=== PATIENT | male | born 1965 | race Caucasian/White ===

== ENCOUNTER → 2017-03-20 | Outpatient (CLI) | payer BC ==
[~2017-03-20] MED LIST: OMEP40CA2 PO; PERC5TAB12 PO; TRAZ50TA11 PO; VIAG100T PO; [UNRECOGNIZED DRUG - OTHER]; [UNRECOGNIZED DRUG - OTHER] PO
[2017-03-20 12:25] LABS: ANION GAP 8 MEQ/L (8-16); BLOOD UREA NITROGEN 16 MG/DL (7-18); CALCIUM LEVEL 9.2 MG/DL (8.5-10.1); CARBON DIOXIDE LEVEL 27 MEQ/L (21-32); CHLORIDE LEVEL 105 MEQ/L (98-107); CREATININE FOR GFR 0.97 MG/DL (0.70-1.30); GLOMERULAR FILTRATION RATE > 60.0 (>56); GLUCOSE, FASTING 119 MG/DL (70-105); POTASSIUM SERUM 4.2 MEQ/L (3.5-5.1); SODIUM LEVEL 140 MEQ/L (136-145)
== END ==
LOC: M LAB 11:32
PROVIDERS: ATTEND Physician Assistant
DX: I10 Essential (primary) hypertension (principal)

== ENCOUNTER → 2017-07-24 | Outpatient (REF) | payer BC ==
[~2017-07-24] MED LIST changes: +CHLO125TA PO; +LISI40TAB PO
== END ==
LOC: M LAB REF 16:54
PROVIDERS: ATTEND Physician Assistant
DX: R30.0 Dysuria (principal)

== ENCOUNTER → 2017-07-24 | Outpatient (CLI) | payer BC ==
[2017-07-24 16:57] LABS: MEAN CORPUSCULAR HEMOGLOBIN 24.5 pg (27.0-33.0); MEAN CORPUSCULAR HGB CONC 32.2 g/dl (32.0-36.5); MEAN CORPUSCULAR VOLUME 76.1 fl (80.0-96.0); PLATELET COUNT, AUTOMATED 456 10^3/uL (150-450); RED CELL DISTRIBUTION WIDTH 15.4 % (11.5-14.5); WHITE BLOOD COUNT 8.5 10^3/uL (4.0-10.0)
[2017-07-24 17:09] LABS: ALBUMIN 4.1 GM/DL (3.2-5.2); ALBUMIN/GLOBULIN RATIO 0.95 (1.00-1.93); ALKALINE PHOSPHATASE 149 U/L (45-117); ALT/SGPT 27 U/L (12-78); ANION GAP 9 MEQ/L (8-16); AST/SGOT 24 U/L (7-37); BILIRUBIN,TOTAL 0.6 MG/DL (0.2-1.0); BLOOD UREA NITROGEN 14 MG/DL (7-18); CALCIUM LEVEL 9.4 MG/DL (8.5-10.1); CARBON DIOXIDE LEVEL 29 MEQ/L (21-32); CHLORIDE LEVEL 98 MEQ/L (98-107); CHOLESTEROL LEVEL 210 MG/DL (< 200); FREE T4 1.24 NG/DL (0.76-1.46); GLOMERULAR FILTRATION RATE > 60.0 (>56); GLUCOSE, FASTING 110 MG/DL (70-105); IMMUNOGLOBULIN G 1290 MG/DL (681-1648); PHOSPHORUS LEVEL 3.9 MG/DL (2.5-4.9); POTASSIUM SERUM 4.2 MEQ/L (3.5-5.1); SODIUM LEVEL 136 MEQ/L (136-145); TOTAL PROTEIN 8.4 GM/DL (6.4-8.2); TRIGLYCERIDES LEVEL 100 MG/DL (<150)
[2017-07-24 19:01] LABS: ERYTHROCYTE SEDIMENTATION RATE 10 mm/hr (0-20)
[2017-07-25 07:25] LABS: CONTROL LINE MONO INT CTR LINE PRESENT
[2017-07-27 00:06] LABS: Lyme Disease IgG Ab 18 kDa Ban Absent (.); Lyme Disease IgG Ab 23 kDa Ban Absent (.); Lyme Disease IgG Ab 28 kDa Ban Absent (.); Lyme Disease IgG Ab 30 kDa Ban Absent (.); Lyme Disease IgG Ab 39 kDa Ban Absent (.); Lyme Disease IgG Ab 41 kDa Ban Present (.); Lyme Disease IgG Ab 45 kDa Ban Absent (.); Lyme Disease IgG Ab 58 kDa Ban Absent (.); Lyme Disease IgG Ab 66 kDa Ban Present (.); Lyme Disease IgG Ab 93 kDa Ban Absent (.); Lyme Disease IgG West Blot Int Negative (.); Lyme Disease IgG/IgM Antibodie <0.91 ISR (0.00-0.90); Lyme Disease IgM Ab 23 kDa Ban Absent (.); Lyme Disease IgM Ab 39 kDa Ban Absent (.); Lyme Disease IgM Ab 41 kDa Ban Absent (.); Lyme Disease IgM Ab Quantitati 1.13 index (0.00-0.79); Lyme Disease IgM West Blot Int Negative (.); PSA TOTAL 1.5 ng/mL (0.0-4.0)
== END ==
LOC: M SMT 13:44
PROVIDERS: ATTEND Physician Assistant
DX: R53.83 Other fatigue (principal); M25.561 Pain in right knee; R30.0 Dysuria

== ENCOUNTER 2017-08-02 10:02 | Day surgery (SDC) | payer BC ==
[2017-08-02] MEDS: NS 1,000 ML IV (10:24)
[2017-08-02] MEDS ORDERED: LIDOCAINE 2% INJ 100 MG/5 ML SDV (FOR ANES.) As Ordered (11:19)
[2017-08-02] MEDS ORDERED: PROPOFOL 200 MG/20 ML VIAL As Ordered ×3 (11:19→11:34)
== END 2017-08-02 12:19 | disposition home or self-care (01) ==
LOC: M OPP 10:02
DX: Z08 Encounter for follow-up examination after completed treatment for malignant neoplasm (principal); Z85.038 Personal history of other malignant neoplasm of large intestine; K62.1 Rectal polyp; D12.3 Benign neoplasm of transverse colon; D12.2 Benign neoplasm of ascending colon; K57.30 Diverticulosis of large intestine without perforation or abscess without bleeding; K29.70 Gastritis, unspecified, without bleeding; K44.9 Diaphragmatic hernia without obstruction or gangrene; I10 Essential (primary) hypertension; M19.90 Unspecified osteoarthritis, unspecified site; K21.9 Gastro-esophageal reflux disease without esophagitis; Z99.89 Dependence on other enabling machines and devices; Z79.899 Other long term (current) drug therapy; Z87.891 Personal history of nicotine dependence
CPT/HCPCS: 45385

== ENCOUNTER → 2017-09-13 | Outpatient (CLI) | payer BC ==
[2017-09-13 13:26] LABS: BASO % 0.5 % (0.0-1.0); EOS # 0.2 10^3/uL (0.0-0.50); EOS % 2.6 % (0.0-3.0); HEMATOCRIT 39.6 % (42.0-52.0); HEMOGLOBIN 12.8 g/dl (14.0-18.0); IMMATURE GRANULOCYTE % 0.4 % (0-3.0); LYMPH # 1.4 10^3/uL (1.5-4.5); LYMPH % 17.6 % (24.0-44.0); MEAN CORPUSCULAR HEMOGLOBIN 25.1 pg (27.0-33.0); MEAN CORPUSCULAR HGB CONC 32.3 g/dl (32.0-36.5); MEAN CORPUSCULAR VOLUME 77.6 fl (80.0-96.0); MONO # 0.8 10^3/uL (0.0-0.8); NEUTROPHILS # 5.3 10^3/uL (1.8-7.7); NEUTROPHILS % 68.9 % (36.0-66.0); PLATELET COUNT, AUTOMATED 420 10^3/uL (150-450); RED CELL DISTRIBUTION WIDTH 17.1 % (11.5-14.5); WHITE BLOOD COUNT 7.7 10^3/uL (4.0-10.0)
[2017-09-13 13:36] LABS: CONTROL LINE MONO INT CTR LINE PRESENT; MONO SCRN NEGATIVE (NEGATIVE)
[2017-09-13 13:48] LABS: ALBUMIN 3.5 GM/DL (3.2-5.2); ALBUMIN/GLOBULIN RATIO 0.85 (1.00-1.93); ALKALINE PHOSPHATASE 172 U/L (45-117); ALT/SGPT 50 U/L (12-78); ANION GAP 8 MEQ/L (8-16); AST/SGOT 38 U/L (7-37); BILIRUBIN,TOTAL 0.5 MG/DL (0.2-1.0); BLOOD UREA NITROGEN 13 MG/DL (7-18); CALCIUM LEVEL 9.4 MG/DL (8.5-10.1); CARBON DIOXIDE LEVEL 29 MEQ/L (21-32); CHLORIDE LEVEL 100 MEQ/L (98-107); CREATININE FOR GFR 0.79 MG/DL (0.70-1.30); GLOMERULAR FILTRATION RATE > 60.0 (>56); GLUCOSE, FASTING 103 MG/DL (70-100); POTASSIUM SERUM 3.9 MEQ/L (3.5-5.1); SODIUM LEVEL 137 MEQ/L (136-145); TOTAL PROTEIN 7.6 GM/DL (6.4-8.2)
[2017-09-15 00:06] LABS: Lyme Disease IgG Ab 18 kDa Ban Absent (.); Lyme Disease IgG Ab 23 kDa Ban Absent (.); Lyme Disease IgG Ab 28 kDa Ban Absent (.); Lyme Disease IgG Ab 30 kDa Ban Absent (.); Lyme Disease IgG Ab 39 kDa Ban Absent (.); Lyme Disease IgG Ab 41 kDa Ban Present (.); Lyme Disease IgG Ab 45 kDa Ban Absent (.); Lyme Disease IgG Ab 58 kDa Ban Absent (.); Lyme Disease IgG Ab 66 kDa Ban Absent (.); Lyme Disease IgG Ab 93 kDa Ban Absent (.); Lyme Disease IgG West Blot Int Negative (.); Lyme Disease IgG/IgM Antibodie <0.91 ISR (0.00-0.90); Lyme Disease IgM Ab 23 kDa Ban Absent (.); Lyme Disease IgM Ab 39 kDa Ban Absent (.); Lyme Disease IgM Ab 41 kDa Ban Absent (.); Lyme Disease IgM Ab Quantitati 0.81 index (0.00-0.79); Lyme Disease IgM West Blot Int Negative (.)
== END ==
LOC: M SMT 10:59
DX: R53.83 Other fatigue (principal)
CPT/HCPCS: 80053

== ENCOUNTER 2017-09-25 09:37 | Emergency (ER) | payer BC ==
[2017-09-25 11:30] LABS: BASO % 0.4 % (0.0-1.0); EOS # 0.1 10^3/uL (0.0-0.50); EOS % 1.4 % (0.0-3.0); HEMATOCRIT 33.4 % (42.0-52.0); IMMATURE GRANULOCYTE % 0.4 % (0-3.0); LYMPH # 1.2 10^3/uL (1.5-4.5); LYMPH % 15.9 % (24.0-44.0); MEAN CORPUSCULAR HEMOGLOBIN 25.4 pg (27.0-33.0); MEAN CORPUSCULAR HGB CONC 32.9 g/dl (32.0-36.5); MEAN CORPUSCULAR VOLUME 77.1 fl (80.0-96.0); MONO # 0.6 10^3/uL (0.0-0.8); MONO % 7.6 % (0.0-5.0); NEUTROPHILS # 5.7 10^3/uL (1.8-7.7); NEUTROPHILS % 74.3 % (36.0-66.0); PLATELET COUNT, AUTOMATED 328 10^3/uL (150-450); RED BLOOD COUNT 4.33 10^6/uL (4.30-6.10); RED CELL DISTRIBUTION WIDTH 16.3 % (11.5-14.5); WHITE BLOOD COUNT 7.7 10^3/uL (4.0-10.0)
[2017-09-25] MEDS: ONDANSETRON 4MG/2ML VIAL (J2405) IV (11:33)
[2017-09-25] MEDS: NS 1,000 ML IV (11:33)
[2017-09-25] MEDS: MORPHINE 2 MG/ML 1ML SYRINGE (J2270) IV (11:34)
[2017-09-25 11:48] LABS: ALBUMIN 3.1 GM/DL (3.2-5.2); ALBUMIN/GLOBULIN RATIO 0.74 (1.00-1.93); ALKALINE PHOSPHATASE 159 U/L (45-117); ALT/SGPT 39 U/L (12-78); AMYLASE 81 U/L (25-115); ANION GAP 9 MEQ/L (8-16); AST/SGOT 36 U/L (7-37); BILIRUBIN,DIRECT 0.3 MG/DL (0.0-0.2); BILIRUBIN,TOTAL 0.8 MG/DL (0.2-1.0); BLOOD UREA NITROGEN 11 MG/DL (7-18); CALCIUM LEVEL 9.1 MG/DL (8.5-10.1); CARBON DIOXIDE LEVEL 28 MEQ/L (21-32); CHLORIDE LEVEL 101 MEQ/L (98-107); CREATININE FOR GFR 0.67 MG/DL (0.70-1.30); GLOMERULAR FILTRATION RATE > 60.0 (>56); GLUCOSE, FASTING 96 MG/DL (70-100); LIPASE 854 U/L (73-393); POTASSIUM SERUM 3.4 MEQ/L (3.5-5.1); SODIUM LEVEL 138 MEQ/L (136-145); TOTAL PROTEIN 7.3 GM/DL (6.4-8.2)
[2017-09-25 11:49] LABS: LACTIC ACID SEPSIS PROTOCOL 1.5 MMOL/L (0.4-2.0)
[2017-09-25] MEDS: GASTROGRAFIN SOLUTION 30ML PO ×2 (12:00→12:02)
[2017-09-25] MEDS ORDERED: ISOVUE-370 76% 100ML VIAL (Q9967) As Ordered (12:54)
[2017-09-25] MEDS: MORPHINE 4 MG/ML 1ML VIAL (J2270) IV (13:21)
== END 2017-09-25 14:14 | disposition home or self-care (01) ==
LOC: M ED 09:37
DX: R16.0 Hepatomegaly, not elsewhere classified (principal); R18.8 Other ascites; J90 Pleural effusion, not elsewhere classified; R11.2 Nausea with vomiting, unspecified; I10 Essential (primary) hypertension; G47.33 Obstructive sleep apnea (adult) (pediatric); K21.9 Gastro-esophageal reflux disease without esophagitis; M54.5 Low back pain; A69.20 Lyme disease, unspecified; Z79.899 Other long term (current) drug therapy
CPT/HCPCS: J2270

== ENCOUNTER 2017-09-28 13:24 | Emergency (ER) | payer BC ==
[2017-09-28] MEDS: ONDANSETRON 4MG/2ML VIAL (J2405) IV ×2 (14:19)
[2017-09-28] MEDS: MORPHINE 4 MG/ML 1ML VIAL (J2270) IV ×2 (14:19)
[2017-09-28 14:23] LABS: BASO % 0.4 % (0.0-1.0); EOS # 0.1 10^3/uL (0.0-0.50); EOS % 1.6 % (0.0-3.0); HEMATOCRIT 32.1 % (42.0-52.0); HEMOGLOBIN 10.5 g/dl (14.0-18.0); IMMATURE GRANULOCYTE % 0.3 % (0-3.0); LYMPH # 1.1 10^3/uL (1.5-4.5); LYMPH % 16.8 % (24.0-44.0); MEAN CORPUSCULAR HEMOGLOBIN 25.7 pg (27.0-33.0); MEAN CORPUSCULAR HGB CONC 32.7 g/dl (32.0-36.5); MEAN CORPUSCULAR VOLUME 78.5 fl (80.0-96.0); MONO # 0.5 10^3/uL (0.0-0.8); MONO % 7.1 % (0.0-5.0); NEUTROPHILS % 73.8 % (36.0-66.0); PLATELET COUNT, AUTOMATED 305 10^3/uL (150-450); RED BLOOD COUNT 4.09 10^6/uL (4.30-6.10); RED CELL DISTRIBUTION WIDTH 16.4 % (11.5-14.5); WHITE BLOOD COUNT 6.8 10^3/uL (4.0-10.0)
[2017-09-28 14:28] LABS: INR 1.18; PROTHROMBIN TIME 15.2 SECONDS (12.4-14.5)
[2017-09-28 14:29] LABS: AMMONIA < 10 uMOL/L (<32)
[2017-09-28 14:52] LABS: LACTIC ACID SEPSIS PROTOCOL 1.5 MMOL/L (0.4-2.0)
[2017-09-28 15:27] LABS: ALBUMIN 3.1 GM/DL (3.2-5.2); ALBUMIN/GLOBULIN RATIO 0.82 (1.00-1.93); ALKALINE PHOSPHATASE 172 U/L (45-117); ALT/SGPT 39 U/L (12-78); ANION GAP 8 MEQ/L (8-16); AST/SGOT 38 U/L (7-37); BILIRUBIN,DIRECT 0.3 MG/DL (0.0-0.2); BILIRUBIN,TOTAL 0.7 MG/DL (0.2-1.0); BLOOD UREA NITROGEN 10 MG/DL (7-18); CALCIUM LEVEL 8.5 MG/DL (8.5-10.1); CARBON DIOXIDE LEVEL 29 MEQ/L (21-32); CHLORIDE LEVEL 98 MEQ/L (98-107); GLOMERULAR FILTRATION RATE > 60.0 (>56); GLUCOSE, FASTING 105 MG/DL (70-100); LIPASE 456 U/L (73-393); POTASSIUM SERUM 3.7 MEQ/L (3.5-5.1); SODIUM LEVEL 135 MEQ/L (136-145); TOTAL PROTEIN 6.9 GM/DL (6.4-8.2)
[2017-09-28] MEDS: fentaNYL 100 MCG/2 ML INJECTION (J3010) IV ×2 (15:44)
[2017-09-28] MEDS ORDERED: LIDOCAINE 1% MDV 20ML VIAL As Ordered ×2 (15:53)
[2017-09-28 16:04] LABS: CA 125 74.7 U/ML (<30.2)
[2017-09-28 16:47] LABS: CARCINOEMBRYONIC ANTIGEN 4328.7 NG/ML (<2.5)
[2017-09-28 17:46] LABS: BF MONONUCLEAR CELL % 85.8 % (0-0); BF POLYMORPHONUCLEAR CELL % 14.2 % (0-0); RBC BODY FLUID 18 10^3/uL (<2); WBC BODY FLUID 705 /uL (0-10)
[2017-09-28 17:53] LABS: SOURCE, BODY FLUID PERITONEAL
[2017-09-28 17:55] LABS: APPEARANCE, BODY FLUID CLOUDY (CLEAR); PERITONEAL FL COLOR YELLOW (COLORLESS)
[2017-09-28 17:56] LABS: BF DIFF IF INDICATED? YES (NO)
[2017-09-28 18:34] LABS: CA19-9 TUMOR MARKER,CARBOHYDRA 29936.8 U/ML (<35.0)
== END 2017-09-28 18:53 | disposition home or self-care (01) ==
LOC: M ED 13:24
DX: R18.8 Other ascites (principal); R10.9 Unspecified abdominal pain; R16.0 Hepatomegaly, not elsewhere classified; C76.2 Malignant neoplasm of abdomen; A69.20 Lyme disease, unspecified; Z85.038 Personal history of other malignant neoplasm of large intestine; Z90.49 Acquired absence of other specified parts of digestive tract; Z79.899 Other long term (current) drug therapy
CPT/HCPCS: 49083

== ENCOUNTER 2018-02-22 16:25 | Emergency (ER) | payer BC | END 2018-02-22 18:35 | disposition home or self-care (01) | LOC: M ED 16:25 | DX: M77.01 Medial epicondylitis, right elbow (principal); I10 Essential (primary) hypertension; G47.33 Obstructive sleep apnea (adult) (pediatric); M54.5 Low back pain; Z85.038 Personal history of other malignant neoplasm of large intestine; Z86.19 Personal history of other infectious and parasitic diseases; Z90.49 Acquired absence of other specified parts of digestive tract; Z79.899 Other long term (current) drug therapy; Z79.891 Long term (current) use of opiate analgesic | CPT/HCPCS: 73080 ==

== ENCOUNTER 2018-07-11 13:45 | Emergency (ER) | payer BC | END 2018-07-11 14:20 | disposition home or self-care (01) | LOC: M ED 13:45 | DX: Z48.89 Encounter for other specified surgical aftercare (principal); T81.31XA Disruption of external operation (surgical) wound, not elsewhere classified, initial encounter; Y92.9 Unspecified place or not applicable; Y93.9 Activity, unspecified; C18.9 Malignant neoplasm of colon, unspecified; Z86.19 Personal history of other infectious and parasitic diseases; Z79.899 Other long term (current) drug therapy | CPT/HCPCS: 99282 ==

== ENCOUNTER 2018-07-20 15:55 | Emergency (ER) | payer BC ==
[~2018-07-20] VITALS: Ht 185.4 cm; Wt 90.9 kg
[2018-07-20 15:55] VITALS: BP 121/82
[~2018-07-20 15:55] MED LIST changes: +ALFU10TA2; +AMLO5TAB4 PO; +DILA4TAB13 PO; +DOXY-350 PO; +NORCOTAB PO; +PERC10TA26 PO; +PROC10TA4 PO; +TRAZ-160 PO; -TRAZ50TA11 PO; +ZOFR4TAB14 PO
[2018-07-20] MEDS ORDERED: GASTROGRAFIN SOLUTION 30ML PO SCH (18:30)
[2018-07-20 18:46] LABS: BASO # 0.1 10^3/uL (0.0-0.2); BASO % 0.7 % (0.0-1.0); EOS # 0.2 10^3/uL (0.0-0.50); EOS % 2.4 % (0.0-3.0); HEMATOCRIT 42.1 % (42.0-52.0); HEMOGLOBIN 14.3 g/dl (13.5-17.5); LYMPH # 1.6 10^3/uL (1.5-4.5); LYMPH % 17.2 % (24.0-44.0); MEAN CORPUSCULAR HEMOGLOBIN 28.8 pg (27.0-33.0); MEAN CORPUSCULAR VOLUME 84.9 fl (80.0-96.0); MONO # 0.5 10^3/uL (0.0-0.8); NEUTROPHILS % 74.6 % (36.0-66.0); PLATELET COUNT, AUTOMATED 306 10^3/uL (150-450); RED BLOOD COUNT 4.96 10^6/uL (4.30-6.10); WHITE BLOOD COUNT 9.5 10^3/uL (4.0-10.0)
[2018-07-20 19:08] LABS: ALBUMIN 3.9 GM/DL (3.2-5.2); ALT/SGPT 87 U/L (12-78); AMYLASE 33 U/L (25-115); BILIRUBIN,TOTAL 1.1 MG/DL (0.2-1.0); BLOOD UREA NITROGEN 15 MG/DL (7-18); CALCIUM LEVEL 9.7 MG/DL (8.5-10.1); CARBON DIOXIDE LEVEL 30 MEQ/L (21-32); CHLORIDE LEVEL 97 MEQ/L (98-107); CREATININE FOR GFR 0.98 MG/DL (0.70-1.30); GLOMERULAR FILTRATION RATE > 60.0 (>56); GLUCOSE, FASTING 106 MG/DL (70-100); LIPASE 115 U/L (73-393); POTASSIUM SERUM 3.3 MEQ/L (3.5-5.1); SODIUM LEVEL 137 MEQ/L (136-145); TOTAL PROTEIN 8.5 GM/DL (6.4-8.2)
[2018-07-23] MEDS ORDERED: DOXY100C37 PO (10:54)
== END 2018-07-20 18:50 | disposition left against medical advice (07) ==
LOC: EEVIPCON 15:55 → M ED 15:55
DX: T81.31XA Disruption of external operation (surgical) wound, not elsewhere classified, initial encounter (principal); Y92.9 Unspecified place or not applicable; Y93.9 Activity, unspecified; Z90.49 Acquired absence of other specified parts of digestive tract; I10 Essential (primary) hypertension; C18.9 Malignant neoplasm of colon, unspecified; C22.9 Malignant neoplasm of liver, not specified as primary or secondary; Z79.899 Other long term (current) drug therapy

== ENCOUNTER → 2018-11-22 | Outpatient (CLI) | payer BC ==
[~2018-11-22] MED LIST changes: -AMLO5TAB4 PO; +AMLO5TAB6 PO; +DOXY100C37 PO; +HYDR-3715 PO; +LISI40TA PO; -LISI40TAB PO; -NORCOTAB PO
[2018-11-22 19:16] LABS: ALBUMIN 4.2 GM/DL (3.2-5.2); ALT/SGPT 58 U/L (12-78); BILIRUBIN,TOTAL 1.1 MG/DL (0.2-1.0); BLOOD UREA NITROGEN 16 MG/DL (7-18); CALCIUM LEVEL 9.1 MG/DL (8.5-10.1); CARBON DIOXIDE LEVEL 31 MEQ/L (21-32); CHLORIDE LEVEL 100 MEQ/L (98-107); CHOLESTEROL LEVEL 178 MG/DL (<200); CHOLESTEROL RISK RATIO 4.341 (<5); CREATININE FOR GFR 1.11 MG/DL (0.70-1.30); FREE T4 1.05 NG/DL (0.76-1.46); GLOMERULAR FILTRATION RATE > 60.0 (>56); GLUCOSE, FASTING 101 MG/DL (70-100); HDL CHOLESTEROL 41 MG/DL (>40); LDL CHOLESTEROL 98 MG/DL (<100); NON-HDL-C 137 MG/DL; POTASSIUM SERUM 3.7 MEQ/L (3.5-5.1); SODIUM LEVEL 140 MEQ/L (136-145); THYROID STIMULATING HORMONE 0.922 uIU/ML (0.358-3.740); TOTAL PROTEIN 7.3 GM/DL (6.4-8.2); TRIGLYCERIDES LEVEL 196 MG/DL (<150)
[2018-11-22 19:20] LABS: BASO % 0.5 % (0.0-1.0); EOS # 0.1 10^3/uL (0.0-0.50); HEMATOCRIT 38.2 % (42.0-52.0); HEMOGLOBIN 12.7 g/dl (13.5-17.5); LYMPH # 1.3 10^3/uL (1.5-4.5); MEAN CORPUSCULAR HGB CONC 33.2 g/dl (32.0-36.5); MEAN CORPUSCULAR VOLUME 87.2 fl (80.0-96.0); MONO # 0.4 10^3/uL (0.0-0.8); MONO % 6.1 % (0.0-5.0); NEUTROPHILS # 4.2 10^3/uL (1.8-7.7); NEUTROPHILS % 70.1 % (36.0-66.0); PLATELET COUNT, AUTOMATED 216 10^3/uL (150-450); RED BLOOD COUNT 4.38 10^6/uL (4.30-6.10); WHITE BLOOD COUNT 5.9 10^3/uL (4.0-10.0)
[2018-11-26 14:13] LABS: PSA TOTAL 1.2 ng/mL (0.0-4.0)
== END ==
LOC: M SMT 14:12
PROVIDERS: ATTEND Physician Assistant
DX: I10 Essential (primary) hypertension (principal); R53.83 Other fatigue; Z12.5 Encounter for screening for malignant neoplasm of prostate

== ENCOUNTER → 2019-08-20 | Outpatient (CLI) | payer BC ==
[~2019-08-20] MED LIST changes: -ALFU10TA2; +ALFU10TA3; -OMEP40CA2 PO; +OMEP40CA97 PO; -TRAZ-160 PO; +TRAZ-252 PO
[2019-08-20 17:32] LABS: BASO % 0.5 % (0.0-1.0); EOS # 0.1 10^3/uL (0.0-0.5); EOS % 1.4 % (0.0-3.0); HEMATOCRIT 46.6 % (42.0-52.0); HEMOGLOBIN 15.2 g/dl (13.5-17.5); LYMPH # 1.3 10^3/uL (1.5-5.0); LYMPH % 22.3 % (24.0-44.0); MEAN CORPUSCULAR HEMOGLOBIN 30.6 pg (27.0-33.0); MEAN CORPUSCULAR HGB CONC 32.6 g/dl (32.0-36.5); MEAN CORPUSCULAR VOLUME 93.8 fl (80.0-96.0); MONO # 0.4 10^3/uL (0.0-0.8); MONO % 6.2 % (0.0-5.0); NEUTROPHILS # 3.9 10^3/uL (1.5-8.5); NEUTROPHILS % 69.2 % (36.0-66.0); PLATELET COUNT, AUTOMATED 174 10^3/uL (150-450); RED BLOOD COUNT 4.97 10^6/uL (4.30-6.10); WHITE BLOOD COUNT 5.6 10^3/uL (4.0-10.0)
[2019-08-20 17:44] LABS: ALBUMIN 4.1 GM/DL (3.2-5.2); ALT/SGPT 46 U/L (12-78); BILIRUBIN,TOTAL 0.8 MG/DL (0.2-1.0); BLOOD UREA NITROGEN 13 MG/DL (7-18); C REACTIVE PROTEIN QUANTITATIV < 0.30 MG/DL (0.00-0.30); CALCIUM LEVEL 9.9 MG/DL (8.5-10.1); CARBON DIOXIDE LEVEL 31 MEQ/L (21-32); CHLORIDE LEVEL 101 MEQ/L (98-107); CPK CREATINE PHOSPHOKINASE 86 U/L (39-308); CREATININE FOR GFR 0.81 MG/DL (0.70-1.30); GLOMERULAR FILTRATION RATE > 60.0 (>56); GLUCOSE, FASTING 106 MG/DL (70-100); POTASSIUM SERUM 3.8 MEQ/L (3.5-5.1); SODIUM LEVEL 139 MEQ/L (136-145); TOTAL PROTEIN 7.5 GM/DL (6.4-8.2); URIC ACID 5.5 MG/DL (3.5-7.2)
[2019-08-20 18:14] LABS: ERYTHROCYTE SEDIMENTATION RATE 13 mm/hr (0-20)
[2019-08-23 00:10] LABS: Lyme Disease IgG/IgM Antibodie <0.91 ISR (0.00-0.90); Lyme Disease IgM Ab Quantitati <0.80 index (0.00-0.79)
== END ==
LOC: M PLALAB 12:21
PROVIDERS: ATTEND Physician Assistant
DX: M25.50 Pain in unspecified joint (principal)

== ENCOUNTER → 2020-02-04 | Outpatient (CLI) | payer BC ==
[~2020-02-04] MED LIST changes: +AMLO1TAB24 PO; -AMLO5TAB6 PO
[2020-02-04 11:39] LABS: BASO % 0.4 % (0.0-1.0); EOS # 0.1 10^3/uL (0.0-0.5); HEMATOCRIT 43.1 % (42.0-52.0); HEMOGLOBIN 14.8 g/dl (13.5-17.5); LYMPH # 1.1 10^3/uL (1.5-5.0); LYMPH % 20.2 % (24.0-44.0); MEAN CORPUSCULAR HEMOGLOBIN 33.9 pg (27.0-33.0); MEAN CORPUSCULAR HGB CONC 34.3 g/dl (32.0-36.5); MEAN CORPUSCULAR VOLUME 98.9 fl (80.0-96.0); MONO # 0.4 10^3/uL (0.0-0.8); MONO % 7.2 % (0.0-5.0); NEUTROPHILS # 3.9 10^3/uL (1.5-8.5); NEUTROPHILS % 69.7 % (36.0-66.0); PLATELET COUNT, AUTOMATED 173 10^3/uL (150-450); RED BLOOD COUNT 4.36 10^6/uL (4.30-6.10); WHITE BLOOD COUNT 5.6 10^3/uL (4.0-10.0)
[2020-02-04 12:21] LABS: ALBUMIN 3.9 GM/DL (3.2-5.2); ALT/SGPT 33 U/L (12-78); BILIRUBIN,TOTAL 0.8 MG/DL (0.2-1.0); BLOOD UREA NITROGEN 11 MG/DL (7-18); CARBON DIOXIDE LEVEL 31 MEQ/L (21-32); CHLORIDE LEVEL 102 MEQ/L (98-107); CREATININE FOR GFR 1.07 MG/DL (0.70-1.30); GLOMERULAR FILTRATION RATE > 60.0 (>56); GLUCOSE, FASTING 132 MG/DL (70-100); POTASSIUM SERUM 3.8 MEQ/L (3.5-5.1); SODIUM LEVEL 140 MEQ/L (136-145); TOTAL PROTEIN 7.4 GM/DL (6.4-8.2)
== END ==
LOC: M LAB 10:34
PROVIDERS: ATTEND Physician Assistant
DX: C18.9 Malignant neoplasm of colon, unspecified (principal)

== ENCOUNTER → 2020-04-12 | Outpatient (CLI) | payer BC ==
[2020-04-12 14:03] LABS: APPEARANCE, URINE CLEAR (CLEAR); BACTERIA, URINE AUTO NEGATIVE (NEGATIVE); BILIRUBIN, URINE AUTO NEGATIVE (NEGATIVE); BLOOD, URINE BLOOD NEGATIVE (NEGATIVE); COLOR, URINE STRAW (YELLOW); GLUCOSE, URINE (UA) AUTO NEGATIVE (NEGATIVE); KETONE, URINE AUTO NEGATIVE (NEGATIVE); LEUKOCYTE ESTERASE, URINE AUTO NEGATIVE (NEGATIVE); NITRITE, URINE AUTO NEGATIVE (NEGATIVE); PROTEIN, URINE AUTO NEGATIVE (NEGATIVE); RBC, URINE AUTO 1 /HPF (0-3); SPECIFIC GRAVITY URINE AUTO 1.003 (1.002-1.035); SQUAMOUS EPITHELIAL CELL UR AU 0 /HPF (0-6); UROBILINOGEN, URINE AUTO 0.2 mg/dL (0.0-2.0); WBC, URINE AUTO 0 /HPF (0-3)
[2020-04-12 14:04] LABS: BASO % 0.3 % (0.0-1.0); EOS # 0.1 10^3/uL (0.0-0.5); EOS % 1.6 % (0.0-3.0); HEMATOCRIT 44.3 % (42.0-52.0); HEMOGLOBIN 15.6 g/dl (13.5-17.5); LYMPH # 1.2 10^3/uL (1.5-5.0); LYMPH % 31.7 % (24.0-44.0); MEAN CORPUSCULAR HEMOGLOBIN 32.7 pg (27.0-33.0); MEAN CORPUSCULAR HGB CONC 35.2 g/dl (32.0-36.5); MEAN CORPUSCULAR VOLUME 92.9 fl (80.0-96.0); MONO # 0.5 10^3/uL (0.0-0.8); MONO % 12.1 % (0.0-5.0); NEUTROPHILS # 2.1 10^3/uL (1.5-8.5); PLATELET COUNT, AUTOMATED 132 10^3/uL (150-450); RED BLOOD COUNT 4.77 10^6/uL (4.30-6.10); WHITE BLOOD COUNT 3.8 10^3/uL (4.0-10.0)
[2020-04-12 14:43] LABS: ALBUMIN 3.8 GM/DL (3.2-5.2); ALT/SGPT 63 U/L (12-78); BILIRUBIN,TOTAL 0.7 MG/DL (0.2-1.0); BLOOD UREA NITROGEN 13 MG/DL (7-18); CALCIUM LEVEL 9.5 MG/DL (8.5-10.1); CARBON DIOXIDE LEVEL 32 MEQ/L (21-32); CHLORIDE LEVEL 99 MEQ/L (98-107); CREATININE FOR GFR 0.96 MG/DL (0.70-1.30); GLOMERULAR FILTRATION RATE > 60.0 (>56); GLUCOSE, FASTING 102 MG/DL (70-100); POTASSIUM SERUM 3.2 MEQ/L (3.5-5.1); SODIUM LEVEL 137 MEQ/L (136-145); TOTAL PROTEIN 7.3 GM/DL (6.4-8.2)
== END ==
LOC: M LAB 13:26
PROVIDERS: ATTEND Family Medicine
DX: C18.9 Malignant neoplasm of colon, unspecified (principal)

== ENCOUNTER → 2020-04-26 | Outpatient (CLI) | payer BC ==
[2020-04-26 09:16] LABS: BASO % 0.5 % (0.0-1.0); HEMATOCRIT 37.6 % (42.0-52.0); HEMOGLOBIN 13.4 g/dl (13.5-17.5); LYMPH # 0.7 10^3/uL (1.5-5.0); LYMPH % 34.5 % (24.0-44.0); MEAN CORPUSCULAR HEMOGLOBIN 32.6 pg (27.0-33.0); MEAN CORPUSCULAR HGB CONC 35.6 g/dl (32.0-36.5); MEAN CORPUSCULAR VOLUME 91.5 fl (80.0-96.0); MONO # 0.3 10^3/uL (0.0-0.8); MONO % 12.5 % (0.0-5.0); NEUTROPHILS % 51.5 % (36.0-66.0); RED BLOOD COUNT 4.11 10^6/uL (4.30-6.10)
[2020-04-26 09:18] LABS: APPEARANCE, URINE HAZY (CLEAR); BACTERIA, URINE AUTO NEGATIVE (NEGATIVE); BILIRUBIN, URINE AUTO NEGATIVE (NEGATIVE); BLOOD, URINE BLOOD NEGATIVE (NEGATIVE); COLOR, URINE YELLOW (YELLOW); GLUCOSE, URINE (UA) AUTO NEGATIVE (NEGATIVE); KETONE, URINE AUTO NEGATIVE (NEGATIVE); LEUKOCYTE ESTERASE, URINE AUTO NEGATIVE (NEGATIVE); MUCUS, URINE SMALL (NEGATIVE); NITRITE, URINE AUTO NEGATIVE (NEGATIVE); PLATELET COUNT, AUTOMATED 91 10^3/uL (150-450); PROTEIN, URINE AUTO 1+ mg/dL (NEGATIVE); RBC, URINE AUTO 5 /HPF (0-3); SPECIFIC GRAVITY URINE AUTO 1.026 (1.002-1.035); SQUAMOUS EPITHELIAL CELL UR AU 0 /HPF (0-6); WBC, URINE AUTO 2 /HPF (0-3)
[2020-04-26 10:13] LABS: ALBUMIN 3.4 GM/DL (3.2-5.2); ALT/SGPT 61 U/L (12-78); BILIRUBIN,TOTAL 0.6 MG/DL (0.2-1.0); BLOOD UREA NITROGEN 17 MG/DL (7-18); CALCIUM LEVEL 9.4 MG/DL (8.5-10.1); CARBON DIOXIDE LEVEL 31 MEQ/L (21-32); CHLORIDE LEVEL 100 MEQ/L (98-107); CREATININE FOR GFR 1.07 MG/DL (0.70-1.30); GLOMERULAR FILTRATION RATE > 60.0 (>56); GLUCOSE, FASTING 119 MG/DL (70-100); POTASSIUM SERUM 2.9 MEQ/L (3.5-5.1); SODIUM LEVEL 140 MEQ/L (136-145); TOTAL PROTEIN 6.6 GM/DL (6.4-8.2)
== END ==
LOC: M LAB 08:26
PROVIDERS: ATTEND Physician Assistant
DX: C18.9 Malignant neoplasm of colon, unspecified (principal)

== ENCOUNTER 2021-02-12 14:56 | Emergency (ER) | payer BC ==
[~2021-02-12] VITALS: Ht 185.4 cm; Wt 82.6 kg
[~2021-02-12 14:56] MED LIST changes: -DOXY100C37 PO; +DOXY1CAP62 PO; -LISI40TA PO; +LISI40TA4 PO; +OMEP40CA4 PO; -OMEP40CA97 PO
[2021-02-12] MEDS ORDERED: SODIUM CHLORIDE 0.9% INJ 10 ML SYR IV PRN (16:10)
[2021-02-12 17:15] LABS: HEMOGLOBIN 10.4 g/dl (13.5-17.5); MEAN CORPUSCULAR HEMOGLOBIN 36.2 pg (27.0-33.0); MEAN CORPUSCULAR HGB CONC 35.9 g/dl (32.0-36.5); RED BLOOD COUNT 2.87 10^6/uL (4.30-6.10); WHITE BLOOD COUNT 1.3 10^3/uL (4.0-10.0)
--- NOTE | 2021-02-12 17:32 | REP ---
INDICATION: FUO. COMPARISON: PA CHEST FROM RIB SERIES 07/25/2016 TECHNIQUE: AP PORTABLE SEATED FINDINGS: INDWELLING [id number] CATHETER VIA THE RIGHT JUGULAR ROUTE TERMINATING IN THE SVC. NO PLEURAL EFFUSION, LATERAL PLEURAL THICKENING, APICAL SCARRING OR PNEUMOTHORAX I SEE NO DENSE CONSOLIDATION OR PARENCHYMAL MASS. HILAR CONTOURS AND MEDIASTINAL WITH NORMAL AND UNCHANGED. THE AORTA IS MILDLY TORTUOUS. AIRWAY INTACT. BONY THORAX SHOWS NO ACUTE FINDING ON THIS AP CHEST. NO FREE AIR UNDER THE DIAPHRAGM. IMPRESSION: 1. INDWELLING PORT CATHETER VIA THE RIGHT JUGULAR ROUTE, TIP IN SVC. 2. NO DENSE CONSOLIDATION, PLEURAL EFFUSION OR ANY SUBTLE INFILTRATE/ATELECTASIS. LUNG MAYORGA APPEAR THE SAME ON PREVIOUS EXAM 5 YEARS AGO. 3. HILAR AND MEDIASTINAL CONTOURS UNCHANGED WITHOUT GROSS MASS OR MEDIASTINAL WIDENING. AIRWAY INTACT. NO FREE AIR. <Electronically signed by Ricki Palmer > 02/12/21 [id number]
[2021-02-12 17:36] LABS: PLATELET COUNT, AUTOMATED 73 10^3/uL (150-450)
[2021-02-12 17:41] LABS: ATYPICAL LYMPH 5 % (0-5); LYMPHOCYTES 38 % (16-44); MONOCYTES 8 % (0-5); NEUTROPHILS 48 % (28-66); PLATELET ESTIMATE DECREASED (NORMAL)
[2021-02-12] MEDS ORDERED: MORPHINE 4 MG/ML 1ML VIAL/SYRINGE (J2270) IV ONE (17:55)
[2021-02-12] MEDS ORDERED: ONDANSETRON 4MG/2ML VIAL IV ONE (17:55)
[2021-02-12] MEDS ORDERED: ONDA8TAB10 (17:58)
[2021-02-12] MEDS ORDERED: LONS0.27 (17:58)
[2021-02-12] MEDS ORDERED: OXYC-517 (17:58)
[2021-02-12] MEDS ORDERED: LONS1TAB2 (17:58)
[2021-02-12] MEDS ORDERED: LORA1TAB4 (17:58)
[2021-02-12 18:00] LABS: ALBUMIN 3.6 GM/DL (3.2-5.2); ALT/SGPT 78 U/L (12-78); BILIRUBIN,DIRECT 0.8 MG/DL (0.0-0.2); BILIRUBIN,TOTAL 2.3 MG/DL (0.2-1.0); BLOOD UREA NITROGEN 16 MG/DL (7-18); CALCIUM LEVEL 9.2 MG/DL (8.5-10.1); CARBON DIOXIDE LEVEL 30 MEQ/L (21-32); CHLORIDE LEVEL 96 MEQ/L (98-107); CREATININE FOR GFR 0.82 MG/DL (0.70-1.30); GLOMERULAR FILTRATION RATE > 60.0 (>56); GLUCOSE, FASTING 99 MG/DL (70-100); LIPASE 146 U/L (73-393); POTASSIUM SERUM 3.4 MEQ/L (3.5-5.1); SODIUM LEVEL 135 MEQ/L (136-145); TOTAL PROTEIN 6.7 GM/DL (6.4-8.2)
[2021-02-12] MEDS ORDERED: ISOVUE-370 76% 100ML VIAL As Ordered ONE (18:11)
--- NOTE | 2021-02-12 20:10 | REPVR ---
PROCEDURE INFORMATION: Exam: CT Chest With Contrast; Diagnostic Exam date and time: 02/12/2021 6:17 PM Age: 55 years old Clinical indication: Other: Chemo induced neutropenia, fuo TECHNIQUE: Imaging protocol: Diagnostic computed tomography of the chest with contrast. Radiation optimization: All CT scans at this facility use at least one of these dose optimization techniques: automated exposure control; mA and/or kV adjustment per patient size (includes targeted exams where dose is matched to clinical indication); or iterative reconstruction. Contrast material: ISOVUE 370; Contrast volume: 100 ml; Contrast route: INTRAVENOUS (IV); COMPARISON: CT ABD/PEL W/IV ORAL CONTRAS 09/25/2017 1:02 PM FINDINGS: Thyroid: Normal thyroid. Lungs: There are small pulmonary nodules in both lungs probably small metastatic lesions. Pleural spaces: Unremarkable. No pneumothorax. No pleural effusion. Heart: Unremarkable. No cardiomegaly. No pericardial effusion. Pulmonary arteries: There is opacification of the pulmonary arteries with no evidence of pulmonary embolus. Aorta: The the there is opacification of the aorta which appears intact. Lymph nodes: There are small lymph nodes right and left axilla. Liver: 8.5 cm lobulated low-density mass within the liver the amparo hepatis. This measured [address] scan of 2018. Gallbladder and bile ducts: The the gallbladder is contracted and there are small calcified gallstones. There is hazy increased density along the margins of the gallbladder which could be secondary to cholecystitis. Spleen: There is severe splenomegaly. Adrenal glands: In knee normal-sized adrenal glands. 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 There is however some increased density along the margin of the gastric antrum. Intraperitoneal space: The ascites seen in 2018 is no longer identified. Bones/joints: There is mild anterior osteophyte formation of the thoracic spine. Soft tissues: 4.5 cm in length by 2 cm in greatest thickness soft tissue density along the right side of the heart similar to 2018 probably neoplasm. IMPRESSION: 1. There are now small pulmonary nodules throughout the lungs probably small metastatic nodules. Large 8.5 cm low-density mass at the amparo hepatis of the liver consistent with neoplasm but decreased since 2018. 2. Severe splenomegaly. 3. Contracted gallbladder with calcified stones. Also hazy margins and this could be the result of cholecystitis. Electronically signed by: Mo Silveira On 02/12/2021 20:09:46 PM
[2021-02-12 20:11] LABS: RSV AMPLIFICATION NEGATIVE (NEGATIVE)
--- NOTE | 2021-02-12 20:28 | REPVR ---
PROCEDURE INFORMATION: Exam: CT Abdomen And Pelvis With Contrast Exam date and time: 02/12/2021 6:17 PM Age: 55 years old Clinical indication: Other: Chemo induced neutropenia, fuo TECHNIQUE: Imaging protocol: Computed tomography of the abdomen and pelvis with contrast. Radiation optimization: All CT scans at this facility use at least one of these dose optimization techniques: automated exposure control; mA and/or kV adjustment per patient size (includes targeted exams where dose is matched to clinical indication); or iterative reconstruction. Contrast material: ISOVUE 370; Contrast volume: 100 ml; Contrast route: INTRAVENOUS (IV); COMPARISON: CT ABD/PEL W/IV ORAL CONTRAS 09/25/2017 1:02 PM FINDINGS: Liver: There is an 8.2 cm lobulated low-density mass with areas of calcification in vascular enhancement within the amparo hepatis. This has decreased in size since 2018 but all consistent with a severe malignant neoplasm. There is soft tissue density within the mesentery at the junction of the left lobe of the liver and antrum of the stomach consistent with neoplasm. The amount of mesenteric metastasis has decreased since 2018. Mass at the amparo hepatis severely narrows the inferior vena cava similar to 2018. There is moderate-sized lymph nodes at the amparo hepatis as well. Pancreas: Normal pancreas. Spleen: Severe splenomegaly is present. Adrenal glands: Normal. No mass. Kidneys and ureters: There is enhancement of both kidneys. Appendix: Normal appendix. Intraperitoneal space: See "Liver" finding. Vasculature: Unremarkable. No abdominal aortic aneurysm. Lymph nodes: See "Appendix" finding. Urinary bladder: Normal appearing urinary bladder. Reproductive: Normal prostate. Soft tissues: Anterior abdominal wall scar is present and there are calcifications within this and also areas of thickening consistent with neoplasm within the scar. The gallbladder is contracted with multiple calcified gallstones. There is some hazy increased density along the margins of the gallbladder which may be cholecystitis or related to the mesenteric neoplasm. There is a moderate amount of stool through the colon. 5 cm lobulated mass within the mid mesentery just deep to the umbilicus and this has decreased in size since 2018 the consistent with neoplasm. IMPRESSION: 1. 8.5 cm lobulated low-density malignant mass at amparo hepatis surrounding the SMV and narrowing the inferior vena cava. 2. 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 3. Contracted gallbladder with calcified stones. Hazy increased density surrounding the gallbladder could be cholecystitis or the result of infiltrative neoplasm. 4. Soft tissue neoplasm at the scar at the umbilicus. 5 cm lobulated bilobed nodule within the mid mesentery at the level of the umbilicus consistent with neoplasm. 5. Severe splenomegaly. Electronically signed by: Mo Silveira On 02/12/2021 20:27:48 PM
[2021-02-12] MEDS ORDERED: LEVO750T14 PO (21:19)
[2021-02-12] MEDS ORDERED: LevoFLOXacin 750 MG TABLET PO ONE (21:25)
[2021-02-12 21:32] VITALS: BP 132/58
== END 2021-02-12 21:41 | disposition home or self-care (01) ==
LOC: M ED 14:56
DX: R50.9 Fever, unspecified (principal); R53.83 Other fatigue; C18.9 Malignant neoplasm of colon, unspecified; C78.7 Secondary malignant neoplasm of liver and intrahepatic bile duct; I10 Essential (primary) hypertension; R16.1 Splenomegaly, not elsewhere classified; K80.20 Calculus of gallbladder without cholecystitis without obstruction; C77.2 Secondary and unspecified malignant neoplasm of intra-abdominal lymph nodes; R22.2 Localized swelling, mass and lump, trunk; Z95.9 Presence of cardiac and vascular implant and graft, unspecified; Z79.899 Other long term (current) drug therapy
CPT/HCPCS: 71045; 71260; 74177; 80048; 80076; 81001; 83605; 83690; 85025; 85049; 85055; 87040; 87631; 96374; 96375; 99285; J1642; J2270; J2405; Q9967

== ENCOUNTER → 2021-06-14 | Outpatient (CLI) | payer BC ==
[~2021-06-14] MED LIST changes: +DOXY-443 PO; -DOXY1CAP62 PO; +LEVO750T14 PO; +LONS0.27; +LONS1TAB2; +LORA1TAB4; +ONDA8TAB10; +OXYC-517
[2021-06-14 17:04] LABS: BASO % 0.4 % (0.0-1.0); EOS # 0.1 10^3/uL (0.0-0.5); EOS % 1.5 % (0.0-3.0); HEMOGLOBIN 12.5 g/dl (13.5-17.5); LYMPH # 0.8 10^3/uL (1.5-5.0); LYMPH % 16.3 % (24.0-44.0); MEAN CORPUSCULAR HEMOGLOBIN 35.4 pg (27.0-33.0); MEAN CORPUSCULAR HGB CONC 34.7 g/dl (32.0-36.5); MONO # 0.4 10^3/uL (0.0-0.8); MONO % 8.3 % (2.0-8.0); NEUTROPHILS # 3.5 10^3/uL (1.5-8.5); NEUTROPHILS % 73.1 % (36.0-66.0); PLATELET COUNT, AUTOMATED 175 10^3/uL (150-450); RED BLOOD COUNT 3.53 10^6/uL (4.30-6.10); WHITE BLOOD COUNT 4.8 10^3/uL (4.0-10.0)
[2021-06-14 17:41] LABS: ALBUMIN 2.7 GM/DL (3.2-5.2); ALT/SGPT 73 U/L (12-78); BILIRUBIN,TOTAL 8.6 MG/DL (0.2-1.0); BLOOD UREA NITROGEN 9 MG/DL (7-18); CALCIUM LEVEL 9.3 MG/DL (8.5-10.1); CARBON DIOXIDE LEVEL 35 MEQ/L (21-32); CHLORIDE LEVEL 92 MEQ/L (98-107); GLOMERULAR FILTRATION RATE > 60.0 (>56); GLUCOSE, FASTING 141 MG/DL (70-100); SODIUM LEVEL 135 MEQ/L (136-145); TOTAL PROTEIN 6.7 GM/DL (6.4-8.2)
== END ==
LOC: M PLALAB 15:40
PROVIDERS: ATTEND Nurse Practitioner
DX: C18.9 Malignant neoplasm of colon, unspecified (principal)

== ENCOUNTER 2021-07-06 19:06 | Emergency (ER) | payer BC ==
[~2021-07-06 19:06] MED LIST changes: +ONDA-84; -ONDA8TAB10; -PROC10TA4 PO; +PROC10TA5 PO
[2021-07-06 21:10] VITALS: BP 103/79
== END 2021-07-06 21:30 | disposition home or self-care (01) ==
LOC: EDBD 19:06 → M ED 19:06
DX: C18.9 Malignant neoplasm of colon, unspecified (principal); K72.90 Hepatic failure, unspecified without coma; Z51.5 Encounter for palliative care; Z79.899 Other long term (current) drug therapy